=== PATIENT | female | born 1975 | race Caucasian/White ===

== ENCOUNTER 2016-10-29 21:43 | Inpatient (IN) | payer MEDICARE, MEDICAID ==
[~2016-10-29] VITALS: Ht 177.8 cm; Wt 75.3 kg
[~2016-10-29 21:43] MED LIST: DIVA500T52 PO; LEVO50 PO; SULF1TAB42 PO
[2016-10-29] MEDS ORDERED: [UNRECOGNIZED DRUG - CODE] PO (22:02)
[2016-10-29] MEDS ORDERED: TOPI50TA90 PO (22:02)
[2016-10-29 22:16] LABS: EOSINOPHILS % (AUTO) 0.03 % (1.0-6.0)
[2016-10-29 22:25] LABS: BASOPHILS # (AUTO) 0.14 K/uL (0.00-0.20); BASOPHILS % (AUTO) 1.2 % (0.0-2.0); HEMATOCRIT 41.6 % (36-46); HEMOGLOBIN 13.7 g/dL (12.0-16.0); LYMPHOCYTES # (AUTO) 1.1 K/uL (1.0-4.8); LYMPHOCYTES % (AUTO) 9.3 % (22.0-44.0); MEAN CORPUSCULAR HEMOGLOBIN 27.4 pg (26.0-34.0); MEAN CORPUSCULAR VOLUME 83 fL (80-100); MONOCYTES # (AUTO) 0.3 K/uL (0.1-1.0); MONOCYTES % (AUTO) 2.5 % (2.0-9.0); PLATELET COUNT (AUTO) 304 K/uL (150-450); RED BLOOD CELL COUNT(AUTO) 5.01 MIL/uL (4.00-5.20); WHITE BLOOD COUNT (AUTO) 11.5 K/uL (4.5-11.0)
[2016-10-29 22:27] LABS: ANION GAP 15 mmol/L (8-16); CALCIUM, TOTAL 7.5 mg/dL (8.8-10.5); CARBON DIOXIDE 23 mmol/L (22-29); CHLORIDE 99 mmol/L (98-107); GLOMERULAR FILTR. RATE CALC > 60 mL/min (>60); POTASSIUM 3.4 mmol/L (3.5-5.1); SODIUM SERUM 137 mmol/L (136-145); UREA NITROGEN, BLOOD 9 mg/dL (7-18)
[2016-10-29 22:29] LABS: NEUTROPHILS % (AUTO) 86.9 % (40.0-70.0)
[2016-10-29 22:31] LABS: ALANINE AMINOTRANSFERASE 146 U/L (12-78); ALBUMIN 2.9 g/dL (3.4-5.0); ASPARTATE AMINOTRANSFERASE 146 U/L (15-37); BILIRUBIN,TOTAL 0.4 mg/dL (0.1-1.0); TOTAL PROTEIN, SERUM 6.3 g/dL (6.4-8.2)
[2016-10-29 22:49] LABS: RBC MORPHOLOGY COMMENT ABNORMAL RBC MORPH
[2016-10-30] MEDS ORDERED: ONDANSETRON HCL 4 MG TABLET PO ONE
[2016-10-30] MEDS ORDERED: LORazepam 2 MG TABLET PO ONE
[2016-10-30] MEDS ORDERED: POTASSIUM CHLORIDE 10% 40 MEQ/30 ML LIQUID UDCUP PO ONE (00:30)
[2016-10-30 02:50] VITALS: BP 132/89
[2016-10-30] MEDS ORDERED: INFLUENZA VIRUS VACCINE QVS 2016-17 (3YR+)/PF 60 MCG/0.5 ML SYRINGE IM ONE (04:00)
[2016-10-30] MEDS: LORazepam 2 MG TABLET PO PRN ×4 (04:32→17:46)
[2016-10-30] MEDS: HALOPERIDOL 5 MG TABLET PO PRN (08:10)
[2016-10-30 08:32] LABS: THYROID STIMULATING HORMONE 2.79 uIU/mL (0.36-3.74)
[2016-10-30] MEDS ORDERED: LOPERAMIDE HCL 2 MG CAPSULE PO ONE (09:30)
[2016-10-30] MEDS ORDERED: LOPERAMIDE HCL 2 MG CAPSULE PO PRN (09:30)
[2016-10-30 14:10] VITALS: BP 106/70
[2016-10-30] MEDS ORDERED: ONDANSETRON HCL 4 MG TABLET PO PRN (14:15)
[2016-10-30] MEDS: NITROFURANTOIN/NITROFURAN MAC 100 MG CAPSULE [MACROBID] PO SCH (16:19)
[2016-10-30 16:28] VITALS: BP 116/76
[2016-10-30 17:44] VITALS: BP 114/78
[2016-10-30] MEDS: ZOLPIDEM TARTRATE 10 MG TABLET PO PRN (21:04)
[2016-10-31] VITALS (7 sets, daily range): BP systolic 98–131; BP diastolic 59–91
[2016-10-31] MEDS: LORazepam 2 MG TABLET PO PRN ×3 (04:25→16:53)
[2016-10-31] MEDS: LEVOTHYROXINE SODIUM 25 MCG TABLET PO SCH (06:34)
[2016-10-31] MEDS: NITROFURANTOIN/NITROFURAN MAC 100 MG CAPSULE [MACROBID] PO SCH ×2 (08:51→16:21)
[2016-10-31] MEDS: ChlordiazePOXIDE HCL 25 MG CAPSULE PO SCH ×2 (18:59→22:05)
[2016-10-31] MEDS: TraZODone HCL 100 MG TABLET PO SCH (18:59)
[2016-11-01] VITALS (8 sets, daily range): BP systolic 103–140; BP diastolic 60–89
[2016-11-01] MEDS: ZOLPIDEM TARTRATE 10 MG TABLET PO PRN ×2 (00:26→21:12)
[2016-11-01] MEDS: ChlordiazePOXIDE HCL 25 MG CAPSULE PO PRN (05:37)
[2016-11-01] MEDS: LEVOTHYROXINE SODIUM 25 MCG TABLET PO SCH (07:07)
[2016-11-01] MEDS: NITROFURANTOIN/NITROFURAN MAC 100 MG CAPSULE [MACROBID] PO SCH ×2 (09:07→16:01)
[2016-11-01] MEDS: ChlordiazePOXIDE HCL 25 MG CAPSULE PO SCH ×4 (09:07→20:18)
[2016-11-01] MEDS: TraZODone HCL 100 MG TABLET PO SCH ×3 (09:07→16:01)
[2016-11-01] MEDS: HALOPERIDOL 5 MG TABLET PO PRN (23:17)
[2016-11-02 00:30] VITALS: BP 112/65
[2016-11-02] MEDS: ChlordiazePOXIDE HCL 25 MG CAPSULE PO PRN (04:12)
[2016-11-02] MEDS ORDERED: ChlordiazePOXIDE HCL 10 MG CAPSULE PO PRN (07:00)
[2016-11-02] MEDS: LEVOTHYROXINE SODIUM 25 MCG TABLET PO SCH (07:19)
[2016-11-02] MEDS: HALOPERIDOL 5 MG TABLET PO PRN ×3 (07:42→16:27)
[2016-11-02] MEDS: ChlordiazePOXIDE HCL 10 MG CAPSULE PO SCH ×4 (08:04→20:25)
[2016-11-02] MEDS: TraZODone HCL 100 MG TABLET PO SCH ×3 (08:04→16:03)
[2016-11-02] MEDS: NITROFURANTOIN/NITROFURAN MAC 100 MG CAPSULE [MACROBID] PO SCH ×2 (08:04→17:14)
[2016-11-02 16:20] VITALS: BP 121/74
[2016-11-02 16:22] VITALS: BP 121/74
[2016-11-02 18:15] VITALS: BP 122/81
[2016-11-02] MEDS ORDERED: IBUPROFEN 600 MG TABLET PO PRN (18:15)
[2016-11-02] MEDS: ZOLPIDEM TARTRATE 10 MG TABLET PO PRN (20:37)
[2016-11-03] MEDS: HALOPERIDOL 5 MG TABLET PO PRN (00:31)
[2016-11-03 00:33] VITALS: BP 101/83
[2016-11-03] MEDS ORDERED: TRAZ-147 PO (02:29)
[2016-11-03] MEDS ORDERED: MACR100 PO (02:31)
[2016-11-03] MEDS: LEVOTHYROXINE SODIUM 25 MCG TABLET PO SCH (06:41)
[2016-11-03] MEDS ORDERED: ChlordiazePOXIDE HCL 10 MG CAPSULE PO PRN (07:00)
[2016-11-03] MEDS: NITROFURANTOIN/NITROFURAN MAC 100 MG CAPSULE [MACROBID] PO SCH (07:58)
[2016-11-03 08:15] VITALS: BP 103/74
[2016-11-03] MEDS: TraZODone HCL 100 MG TABLET PO SCH (08:46)
== END 2016-11-03 09:00 | disposition home or self-care (01) | DRG 885 ==
LOC: EMS 21:45 → 3EX 10-30 00:01
PROVIDERS: ADMIT Psychiatry & Neurology Psychiatry; ATTEND Psychiatry & Neurology Psychiatry
PROC: 3E0234Z Introduction of Serum, Toxoid and Vaccine into Muscle, Percutaneous Approach (ICD-10-PCS; principal; 2016-10-30)
DX: F25.0 Schizoaffective disorder, bipolar type (principal); R45.851 Suicidal ideations; E46 Unspecified protein-calorie malnutrition; N39.0 Urinary tract infection, site not specified; F10.121 Alcohol abuse with intoxication delirium; K70.30 Alcoholic cirrhosis of liver without ascites; E03.9 Hypothyroidism, unspecified; K29.70 Gastritis, unspecified, without bleeding; F22 Delusional disorders; F15.129 Other stimulant abuse with intoxication, unspecified; Z98.84 Bariatric surgery status; Z88.6 Allergy status to analgesic agent; Z91.410 Personal history of adult physical and sexual abuse; Z68.23 Body mass index [BMI] 23.0-23.9, adult; Z23 Encounter for immunization
CPT/HCPCS: 84132; 84439; 84443; 99285; G0480; Q0162

== ENCOUNTER 2019-09-08 11:03 | Inpatient (IN) | payer MEDICARE, MEDICAID ==
[2019-09-08] VITALS (8 sets, daily range): BP systolic 104–134; BP diastolic 64–89
[~2019-09-08] VITALS: Ht 177.8 cm; Wt 86.3 kg
[~2019-09-08 11:03] MED LIST changes: -DIVA500T52 PO; +MACR100 PO; -SULF1TAB42 PO; +TRAZ-257 PO
[2019-09-08] MEDS ORDERED: TOPI25 PO (11:15)
[2019-09-08] MEDS ORDERED: CHLO10 PO (11:15)
[2019-09-08] MEDS ORDERED: BUPR75 PO (11:15)
[2019-09-08] MEDS ORDERED: GABA-529 PO (11:15)
[2019-09-08 12:07] LABS: BASOPHILS % (AUTO) 0.7 % (0.0-2.0); EOSINOPHILS % (AUTO) 0.5 % (1.0-6.0); HEMATOCRIT 39.9 % (36-46); HEMOGLOBIN 13.3 g/dL (12.0-16.0); LYMPHOCYTES # (AUTO) 1.2 K/uL (1.0-4.8); LYMPHOCYTES % (AUTO) 20.7 % (22.0-44.0); MEAN CORPUSCULAR HEMOGLOBIN 32.3 pg (26.0-34.0); MEAN CORPUSCULAR HGB CONC 33.4 G/dL (31.0-37.0); MEAN CORPUSCULAR VOLUME 97 fL (80-100); MONOCYTES # (AUTO) 0.6 K/uL (0.1-1.0); NEUTROPHILS # (AUTO) 4.1 K/uL (1.8-7.7); NEUTROPHILS % (AUTO) 68.1 % (40.0-70.0); PLATELET COUNT (AUTO) 276 K/uL (150-450); RED BLOOD CELL COUNT(AUTO) 4.12 MIL/uL (4.00-5.20); RED CELL DISTRIBUTION WIDTH 13.6 % (11.5-14.5)
[2019-09-08 12:15] LABS: ANION GAP 12 mmol/L (8-16); CALCIUM, TOTAL 8.3 mg/dL (8.8-10.5); CARBON DIOXIDE 25 mmol/L (22-29); CHLORIDE 96 mmol/L (98-107); CREATININE 0.43 mg/dL (0.60-1.30); GLOMERULAR FILTR. RATE CALC > 60 mL/min (>60); GLUCOSE,RANDOM 102 mg/dL (70-110); POTASSIUM 3.4 mmol/L (3.5-5.1); SODIUM SERUM 133 mmol/L (136-145); UREA NITROGEN, BLOOD 7 mg/dL (7-18)
[2019-09-08 12:21] LABS: ALANINE AMINOTRANSFERASE 70 U/L (12-78); ALBUMIN 3.1 g/dL (3.4-5.0); ALKALINE PHOSPHATASE 175 U/L (46-116); ASPARTATE AMINOTRANSFERASE 43 U/L (15-37); BILIRUBIN,TOTAL 0.3 mg/dL (0.1-1.0); TOTAL PROTEIN, SERUM 6.1 g/dL (6.4-8.2)
[2019-09-08] MEDS ORDERED: OLANZapine 5 MG RAPDIS TABLET PO PRN (13:15)
[2019-09-08] MEDS ORDERED: TUBERCULIN, PURIFIED PROTEIN DERIVATIVE 5 TU/0.1 ML SYRINGE ID ONE (13:15)
[2019-09-08] MEDS ORDERED: GuaiFENesin/D-METHORPHAN [SUGAR-FREE] 200-20MG/10 ML SYRUP UDCUP PO PRN (13:15)
[2019-09-08] MEDS ORDERED: CYANOCOBALAMIN 1,000 MCG/ML VIAL IM ONE (13:15)
[2019-09-08] MEDS ORDERED: MAGNESIUM HYDROXIDE SUSPENSION 30 ML UDCUP PO PRN (13:15)
[2019-09-08] MEDS ORDERED: LOPERAMIDE HCL 2 MG CAPSULE PO PRN (13:15)
[2019-09-08] MEDS ORDERED: ACETAMINOPHEN 325 MG TABLET PO PRN (13:15)
[2019-09-08] MEDS ORDERED: HydrOXYzine PAMOATE 50 MG CAPSULE PO PRN (13:15)
[2019-09-08 15:03] LABS: APPEARANCE,URINE CLEAR (CLEAR); BILIRUBIN,URINE NEGATIVE (NEGATIVE); GLUCOSE, URINE (UA) NEGATIVE (NEGATIVE); KETONES,URINE NEGATIVE (NEGATIVE); LEUKOCYTE ESTERASE ,URINE NEGATIVE (NEGATIVE); NITRATE,URINE NEGATIVE (NEGATIVE); OCCULT BLOOD,URINE NEGATIVE (NEGATIVE); PROTEIN,URINE NEGATIVE (NEGATIVE); UROBILINOGEN,URINE 0.2 mg/dL (<=1.0)
[2019-09-08 15:13] LABS: AMPHET/METH SCREEN,URINE NEGATIVE (NEGATIVE); BARBITURATE SCREEN, URINE POSITIVE (NEGATIVE); BENZODIAZEPINES SCREEN,URINE POSITIVE (NEGATIVE); CANNABINOID SCREEN,URINE NEGATIVE (NEGATIVE); COCAINE SCREEN,URINE NEGATIVE (NEGATIVE); METHADONE SCREEN, URINE NEGATIVE (NEGATIVE); OPIATE SCREEN,URINE NEGATIVE (NEGATIVE)
[2019-09-08 15:14] LABS: PHENCYCLIDINE SCREEN,URINE NEGATIVE (NEGATIVE)
[2019-09-08] MEDS: PROMETHAZINE HCL 25 MG TABLET PO PRN (19:47)
[2019-09-08] MEDS: LORazepam 2 MG TABLET PO PRN (19:47)
[2019-09-08] MEDS: GABAPENTIN 100 MG CAPSULE PO SCH (20:49)
[2019-09-08] MEDS: THIAMINE HCL 100 MG TABLET PO SCH (20:49)
[2019-09-08] MEDS ORDERED: OLANZapine 10 MG RAPDIS TABLET PO SCH (21:00)
[2019-09-08] MEDS ORDERED: TOPIRAMATE 25 MG TABLET PO SCH (21:00)
[2019-09-09] VITALS (9 sets, daily range): BP systolic 94–126; BP diastolic 64–83
[2019-09-09] MEDS: LORazepam 2 MG TABLET PO PRN ×3 (00:15→13:56)
[2019-09-09] MEDS: NALTREXONE HCL 50 MG TABLET PO SCH (08:19)
[2019-09-09] MEDS: THIAMINE HCL 100 MG TABLET PO SCH ×2 (08:20→16:59)
[2019-09-09] MEDS: LORazepam 2 MG TABLET PO SCH ×5 (08:20→20:43)
[2019-09-09] MEDS: FOLIC ACID 1 MG TABLET PO SCH (08:20)
[2019-09-09] MEDS: GABAPENTIN 100 MG CAPSULE PO SCH ×4 (08:20→20:21)
[2019-09-09] MEDS: MULTIVITAMINS WITH MINERALS, THERAPEUTIC TABLET PO SCH (08:20)
[2019-09-09] MEDS: TOPIRAMATE 100 MG TABLET PO SCH (20:21)
[2019-09-10 01:45] VITALS: BP 116/79
[2019-09-10] MEDS: LORazepam 2 MG TABLET PO PRN ×3 (01:50→06:14)
[2019-09-10] MEDS: MAG HYDROX/AL HYDROX/SIMETH ES 30 ML SUSPENSION UDCUP PO PRN (04:34)
[2019-09-10 07:47] LABS: HEMOGLOBIN A1C 5.4 % (4.5-6.2)
[2019-09-10 08:10] LABS: FREE T4 (FREE THYROXINE) 0.66 ng/dL (0.76-1.46); MAGNESIUM 1.7 mg/dL (1.80-2.40); THYROID STIMULATING HORMONE 3.97 uIU/mL (0.36-3.74)
[2019-09-10 08:30] VITALS: BP 116/79
[2019-09-10] MEDS: MULTIVITAMINS WITH MINERALS, THERAPEUTIC TABLET PO SCH (08:45)
[2019-09-10] MEDS: GABAPENTIN 100 MG CAPSULE PO SCH ×4 (08:46→20:14)
[2019-09-10] MEDS: NALTREXONE HCL 50 MG TABLET PO SCH (08:46)
[2019-09-10] MEDS: FOLIC ACID 1 MG TABLET PO SCH (08:46)
[2019-09-10] MEDS: THIAMINE HCL 100 MG TABLET PO SCH ×2 (08:46→16:14)
[2019-09-10] MEDS: LORazepam 2 MG TABLET PO SCH ×2 (08:48→13:58)
[2019-09-10] MEDS ORDERED: ARIPiprazole 15 MG TABLET PO SCH (09:00)
[2019-09-10] MEDS ORDERED: ATOMOXETINE HCL 10 MG CAPSULE PO SCH (09:00)
[2019-09-10] MEDS ORDERED: MAGNESIUM OXIDE 400 MG TABLET PO ONE (11:30)
[2019-09-10] MEDS ORDERED: POTASSIUM CHLORIDE 20 MEQ ER TABLET PO ONE (11:30)
[2019-09-10] MEDS: LEVOTHYROXINE SODIUM 50 MCG TABLET PO SCH (12:31)
[2019-09-10 13:55] VITALS: BP 116/83
[2019-09-10 14:45] VITALS: BP 128/66
[2019-09-10 16:00] VITALS: BP 120/73
[2019-09-10] MEDS: DIAZEPAM 10 MG TABLET PO PRN ×2 (16:12→20:14)
[2019-09-10] MEDS: PROMETHAZINE HCL 25 MG TABLET PO PRN (18:27)
[2019-09-10] MEDS: TOPIRAMATE 100 MG TABLET PO SCH (20:14)
[2019-09-11] VITALS (11 sets, daily range): BP systolic 98–136; BP diastolic 67–84
[2019-09-11] MEDS: DIAZEPAM 10 MG TABLET PO PRN (01:28)
[2019-09-11] MEDS: LEVOTHYROXINE SODIUM 50 MCG TABLET PO SCH (06:53)
[2019-09-11] MEDS ORDERED: DIAZEPAM 10 MG TABLET PO PRN (07:00)
[2019-09-11] MEDS ORDERED: LORazepam 1 MG TABLET PO PRN (07:00)
[2019-09-11] MEDS: DIAZEPAM 10 MG TABLET PO SCH ×3 (08:01→16:20)
[2019-09-11] MEDS: MULTIVITAMINS WITH MINERALS, THERAPEUTIC TABLET PO SCH (08:02)
[2019-09-11] MEDS: GABAPENTIN 100 MG CAPSULE PO SCH ×3 (08:02→16:21)
[2019-09-11] MEDS: THIAMINE HCL 100 MG TABLET PO SCH ×2 (08:02→16:21)
[2019-09-11] MEDS: FOLIC ACID 1 MG TABLET PO SCH (08:02)
[2019-09-11] MEDS: NALTREXONE HCL 50 MG TABLET PO SCH (08:02)
[2019-09-11] MEDS ORDERED: LORazepam 1 MG TABLET PO SCH (09:00)
[2019-09-11] MEDS ORDERED: LOPERAMIDE HCL 2 MG CAPSULE PO PRN (13:15)
[2019-09-11] MEDS ORDERED: QUEtiapine FUMARATE 100 MG TABLET PO PRN (18:15)
[2019-09-11] MEDS: LORazepam 2 MG TABLET PO PRN ×2 (19:31→22:12)
[2019-09-11] MEDS: GABAPENTIN 300 MG CAPSULE PO SCH (20:17)
[2019-09-11] MEDS: TOPIRAMATE 100 MG TABLET PO SCH (20:17)
[2019-09-11] MEDS ORDERED: QUEtiapine FUMARATE 200 MG TABLET PO SCH (21:00)
[2019-09-12] VITALS (11 sets, daily range): BP systolic 95–127; BP diastolic 68–88
[2019-09-12] MEDS: LORazepam 2 MG TABLET PO PRN ×5 (02:05→17:13)
[2019-09-12] MEDS: LEVOTHYROXINE SODIUM 50 MCG TABLET PO SCH (06:37)
[2019-09-12] MEDS ORDERED: LORazepam 1 MG TABLET PO PRN (07:00)
[2019-09-12 07:50] LABS: ANION GAP 8 mmol/L (8-16); CALCIUM, TOTAL 8.7 mg/dL (8.8-10.5); CARBON DIOXIDE 29 mmol/L (22-29); CHLORIDE 99 mmol/L (98-107); CREATININE 0.43 mg/dL (0.60-1.30); GLOMERULAR FILTR. RATE CALC > 60 mL/min (>60); GLUCOSE,RANDOM 96 mg/dL (70-110); POTASSIUM 4.3 mmol/L (3.5-5.1); SODIUM SERUM 136 mmol/L (136-145); UREA NITROGEN, BLOOD 15 mg/dL (7-18)
[2019-09-12] MEDS: MULTIVITAMINS WITH MINERALS, THERAPEUTIC TABLET PO SCH (08:43)
[2019-09-12] MEDS: THIAMINE HCL 100 MG TABLET PO SCH ×2 (08:43→16:11)
[2019-09-12] MEDS: GABAPENTIN 300 MG CAPSULE PO SCH ×3 (08:43→16:11)
[2019-09-12] MEDS: FOLIC ACID 1 MG TABLET PO SCH (08:43)
[2019-09-12] MEDS: NALTREXONE HCL 50 MG TABLET PO SCH (08:44)
[2019-09-12] MEDS ORDERED: BISACODYL 5 MG EC TABLET PO PRN (08:45)
[2019-09-12] MEDS: IBUPROFEN 600 MG TABLET PO PRN (19:50)
[2019-09-12] MEDS: QUEtiapine FUMARATE 200 MG TABLET PO SCH (20:52)
[2019-09-12] MEDS: GABAPENTIN 400 MG CAPSULE PO SCH (20:52)
[2019-09-12] MEDS: TOPIRAMATE 100 MG TABLET PO SCH (21:26)
[2019-09-13 04:04] VITALS: BP 91/68
[2019-09-13] MEDS: LEVOTHYROXINE SODIUM 50 MCG TABLET PO SCH (06:50)
[2019-09-13] MEDS ORDERED: DIAZEPAM 5 MG TABLET PO PRN (07:00)
[2019-09-13 08:05] LABS: ANION GAP 10 mmol/L (8-16); CALCIUM, TOTAL 8.3 mg/dL (8.8-10.5); CARBON DIOXIDE 25 mmol/L (22-29); CHLORIDE 100 mmol/L (98-107); CREATININE 0.49 mg/dL (0.60-1.30); GLOMERULAR FILTR. RATE CALC > 60 mL/min (>60); GLUCOSE,RANDOM 136 mg/dL (70-110); POTASSIUM 3.5 mmol/L (3.5-5.1); SODIUM SERUM 135 mmol/L (136-145); UREA NITROGEN, BLOOD 14 mg/dL (7-18)
[2019-09-13] MEDS: GABAPENTIN 400 MG CAPSULE PO SCH ×4 (08:55→20:21)
[2019-09-13] MEDS: MULTIVITAMINS WITH MINERALS, THERAPEUTIC TABLET PO SCH (08:55)
[2019-09-13] MEDS: NALTREXONE HCL 50 MG TABLET PO SCH (08:56)
[2019-09-13] MEDS: FOLIC ACID 1 MG TABLET PO SCH (08:56)
[2019-09-13] MEDS: THIAMINE HCL 100 MG TABLET PO SCH ×2 (08:56→16:25)
[2019-09-13 09:00] VITALS: BP 114/75
[2019-09-13] MEDS ORDERED: DIAZEPAM 5 MG TABLET PO SCH (09:00)
[2019-09-13 12:59] VITALS: BP 108/64
[2019-09-13 17:07] VITALS: BP 116/80
[2019-09-13] MEDS: QUEtiapine FUMARATE 200 MG TABLET PO SCH (20:21)
[2019-09-13] MEDS: ZOLPIDEM TARTRATE 10 MG TABLET PO PRN (20:21)
[2019-09-13] MEDS: TOPIRAMATE 100 MG TABLET PO SCH (20:21)
[2019-09-14 01:15] VITALS: BP 93/54
[2019-09-14] MEDS: LEVOTHYROXINE SODIUM 50 MCG TABLET PO SCH (06:40)
[2019-09-14] MEDS ORDERED: DIAZEPAM 5 MG TABLET PO PRN (07:00)
[2019-09-14] MEDS ORDERED: LORazepam 1 MG TABLET PO PRN (07:00)
[2019-09-14] MEDS: LORazepam 1 MG TABLET PO SCH ×4 (08:35→20:06)
[2019-09-14] MEDS: FOLIC ACID 1 MG TABLET PO SCH (08:35)
[2019-09-14] MEDS: GABAPENTIN 400 MG CAPSULE PO SCH ×4 (08:35→20:06)
[2019-09-14] MEDS: NALTREXONE HCL 50 MG TABLET PO SCH (08:35)
[2019-09-14] MEDS: THIAMINE HCL 100 MG TABLET PO SCH ×2 (08:36→16:22)
[2019-09-14] MEDS: MULTIVITAMINS WITH MINERALS, THERAPEUTIC TABLET PO SCH (08:37)
[2019-09-14 09:00] VITALS: BP 96/68
[2019-09-14 12:00] VITALS: BP 98/71
[2019-09-14 12:10] LABS: GLUCOMETER DEV NAME(LOC) 3EX.; GLUCOSE,POINT OF CARE 123 MG/DL (70-110)
[2019-09-14 16:00] VITALS: BP 103/59
[2019-09-14 16:48] VITALS: BP 103/59
[2019-09-14] MEDS: TOPIRAMATE 100 MG TABLET PO SCH (20:06)
[2019-09-14] MEDS: QUEtiapine FUMARATE 200 MG TABLET PO SCH (20:06)
[2019-09-14] MEDS: ZOLPIDEM TARTRATE 10 MG TABLET PO PRN (21:11)
[2019-09-15] VITALS: BP 98/52
[2019-09-15 02:15] VITALS: BP 105/65
[2019-09-15] MEDS: LEVOTHYROXINE SODIUM 50 MCG TABLET PO SCH (06:32)
[2019-09-15] MEDS: GABAPENTIN 400 MG CAPSULE PO SCH ×4 (08:23→20:41)
[2019-09-15] MEDS: NALTREXONE HCL 50 MG TABLET PO SCH (08:23)
[2019-09-15] MEDS: THIAMINE HCL 100 MG TABLET PO SCH ×2 (08:23→16:10)
[2019-09-15] MEDS: MULTIVITAMINS WITH MINERALS, THERAPEUTIC TABLET PO SCH (08:23)
[2019-09-15] MEDS: FOLIC ACID 1 MG TABLET PO SCH (08:23)
[2019-09-15] MEDS: LORazepam 1 MG TABLET PO PRN ×3 (09:30→18:31)
[2019-09-15 09:48] VITALS: BP 118/83
[2019-09-15 09:49] VITALS: BP 118/83
[2019-09-15 16:00] VITALS: BP 102/78
[2019-09-15 16:56] VITALS: BP 96/64
[2019-09-15] MEDS: IBUPROFEN 600 MG TABLET PO PRN (16:56)
[2019-09-15] MEDS: TOPIRAMATE 100 MG TABLET PO SCH (20:41)
[2019-09-15] MEDS: ZOLPIDEM TARTRATE 10 MG TABLET PO PRN (20:44)
[2019-09-15] MEDS ORDERED: QUEtiapine FUMARATE 300 MG TABLET PO SCH (21:00)
[2019-09-16 02:19] VITALS: BP 100/73
[2019-09-16] MEDS: LEVOTHYROXINE SODIUM 50 MCG TABLET PO SCH (06:53)
[2019-09-16 08:00] VITALS: BP 103/67
[2019-09-16] MEDS: GABAPENTIN 400 MG CAPSULE PO SCH ×3 (08:05→16:42)
[2019-09-16] MEDS: MULTIVITAMINS WITH MINERALS, THERAPEUTIC TABLET PO SCH (08:05)
[2019-09-16] MEDS: NALTREXONE HCL 50 MG TABLET PO SCH (08:06)
[2019-09-16] MEDS: THIAMINE HCL 100 MG TABLET PO SCH ×2 (08:06→16:42)
[2019-09-16] MEDS: FOLIC ACID 1 MG TABLET PO SCH (08:06)
[2019-09-16] MEDS: TOPIRAMATE 100 MG TABLET PO SCH (20:23)
[2019-09-16] MEDS: GABAPENTIN 300 MG CAPSULE PO SCH (20:25)
[2019-09-16] MEDS: ZOLPIDEM TARTRATE 10 MG TABLET PO PRN (20:25)
[2019-09-16 20:31] VITALS: BP 101/67
[2019-09-16] MEDS ORDERED: QUEtiapine FUMARATE 200 MG TABLET PO SCH (21:00)
[2019-09-17 02:37] VITALS: BP 104/68
[2019-09-17] MEDS: LEVOTHYROXINE SODIUM 50 MCG TABLET PO SCH (06:44)
[2019-09-17 08:37] VITALS: BP 119/90
[2019-09-17] MEDS: GABAPENTIN 300 MG CAPSULE PO SCH (09:21)
[2019-09-17] MEDS: MULTIVITAMINS WITH MINERALS, THERAPEUTIC TABLET PO SCH (09:21)
[2019-09-17] MEDS: THIAMINE HCL 100 MG TABLET PO SCH ×2 (09:21→16:35)
[2019-09-17] MEDS: NALTREXONE HCL 50 MG TABLET PO SCH (09:21)
[2019-09-17] MEDS: FOLIC ACID 1 MG TABLET PO SCH (09:22)
[2019-09-17] MEDS: GABAPENTIN 400 MG CAPSULE PO SCH ×3 (13:53→20:18)
[2019-09-17] MEDS: QUEtiapine FUMARATE 25 MG TABLET PO SCH ×2 (13:54→16:35)
[2019-09-17 16:46] VITALS: BP 112/77
[2019-09-17] MEDS: TOPIRAMATE 100 MG TABLET PO SCH (20:19)
[2019-09-17] MEDS ORDERED: QUEtiapine FUMARATE 300 MG TABLET PO SCH (21:00)
[2019-09-17] MEDS ORDERED: QUEtiapine FUMARATE 200 MG TABLET PO SCH (21:00)
[2019-09-18 01:56] VITALS: BP 111/68
[2019-09-18] MEDS: LEVOTHYROXINE SODIUM 50 MCG TABLET PO SCH (06:35)
[2019-09-18] MEDS: FOLIC ACID 1 MG TABLET PO SCH (08:57)
[2019-09-18] MEDS: NALTREXONE HCL 50 MG TABLET PO SCH (08:57)
[2019-09-18] MEDS: THIAMINE HCL 100 MG TABLET PO SCH (08:58)
[2019-09-18] MEDS: GABAPENTIN 400 MG CAPSULE PO SCH ×4 (08:59→20:55)
[2019-09-18] MEDS: QUEtiapine FUMARATE 25 MG TABLET PO SCH ×4 (08:59→20:53)
[2019-09-18] MEDS: MULTIVITAMINS WITH MINERALS, THERAPEUTIC TABLET PO SCH (08:59)
[2019-09-18 09:59] VITALS: BP 98/60
[2019-09-18 16:46] VITALS: BP 99/68
[2019-09-18] MEDS: ZOLPIDEM TARTRATE 10 MG TABLET PO PRN (20:53)
[2019-09-18] MEDS: TOPIRAMATE 100 MG TABLET PO SCH (20:54)
[2019-09-18] MEDS: QUEtiapine FUMARATE 300 MG TABLET PO SCH (20:55)
[2019-09-19 00:45] VITALS: BP 103/81
[2019-09-19] MEDS: LEVOTHYROXINE SODIUM 50 MCG TABLET PO SCH (06:58)
[2019-09-19] MEDS: NALTREXONE HCL 50 MG TABLET PO SCH (08:17)
[2019-09-19] MEDS: QUEtiapine FUMARATE 25 MG TABLET PO SCH ×4 (08:18→20:18)
[2019-09-19] MEDS: MULTIVITAMINS WITH MINERALS, THERAPEUTIC TABLET PO SCH (08:18)
[2019-09-19] MEDS: GABAPENTIN 400 MG CAPSULE PO SCH ×4 (08:18→20:18)
[2019-09-19 08:30] VITALS: BP 91/62
[2019-09-19 16:30] VITALS: BP 97/69
[2019-09-19] MEDS: QUEtiapine FUMARATE 300 MG TABLET PO SCH (20:18)
[2019-09-19] MEDS: TOPIRAMATE 100 MG TABLET PO SCH (20:18)
[2019-09-19] MEDS: ZOLPIDEM TARTRATE 10 MG TABLET PO PRN (20:21)
[2019-09-20 05:57] VITALS: BP 101/64
[2019-09-20] MEDS: LEVOTHYROXINE SODIUM 50 MCG TABLET PO SCH (06:26)
[2019-09-20] MEDS: MULTIVITAMINS WITH MINERALS, THERAPEUTIC TABLET PO SCH (08:37)
[2019-09-20] MEDS: NALTREXONE HCL 50 MG TABLET PO SCH (08:37)
[2019-09-20] MEDS: QUEtiapine FUMARATE 25 MG TABLET PO SCH ×3 (08:37→17:03)
[2019-09-20] MEDS: GABAPENTIN 400 MG CAPSULE PO SCH ×4 (08:37→21:42)
[2019-09-20 09:00] VITALS: BP 116/69
[2019-09-20] MEDS: IBUPROFEN 600 MG TABLET PO PRN ×2 (09:55→18:27)
[2019-09-20 16:29] VITALS: BP 102/60
[2019-09-20] MEDS: ChlorproMAZINE HCL 100 MG TABLET PO SCH (21:35)
[2019-09-20] MEDS: TOPIRAMATE 100 MG TABLET PO SCH (21:42)
[2019-09-21] MEDS: LEVOTHYROXINE SODIUM 50 MCG TABLET PO SCH (07:11)
[2019-09-21] MEDS: GABAPENTIN 400 MG CAPSULE PO SCH ×4 (08:02→20:19)
[2019-09-21] MEDS: QUEtiapine FUMARATE 25 MG TABLET PO SCH ×3 (08:03→16:17)
[2019-09-21] MEDS: NALTREXONE HCL 50 MG TABLET PO SCH (08:03)
[2019-09-21] MEDS: MULTIVITAMINS WITH MINERALS, THERAPEUTIC TABLET PO SCH (08:03)
[2019-09-21 11:40] VITALS: BP 98/68
[2019-09-21 16:53] VITALS: BP 95/65
[2019-09-21] MEDS: ChlorproMAZINE HCL 100 MG TABLET PO SCH (20:19)
[2019-09-21] MEDS: TOPIRAMATE 100 MG TABLET PO SCH (20:19)
[2019-09-22 01:50] VITALS: BP 94/69
[2019-09-22] MEDS: LEVOTHYROXINE SODIUM 50 MCG TABLET PO SCH (06:39)
[2019-09-22 08:10] VITALS: BP 111/73
[2019-09-22] MEDS: IBUPROFEN 600 MG TABLET PO PRN ×2 (08:10→19:52)
[2019-09-22] MEDS: MULTIVITAMINS WITH MINERALS, THERAPEUTIC TABLET PO SCH (08:11)
[2019-09-22] MEDS: QUEtiapine FUMARATE 25 MG TABLET PO SCH ×3 (08:11→16:27)
[2019-09-22] MEDS: NALTREXONE HCL 50 MG TABLET PO SCH (08:11)
[2019-09-22] MEDS: GABAPENTIN 400 MG CAPSULE PO SCH ×4 (08:11→19:51)
[2019-09-22 08:25] VITALS: BP 100/72
[2019-09-22 19:52] VITALS: BP 95/68
[2019-09-22] MEDS: TOPIRAMATE 100 MG TABLET PO SCH (19:53)
[2019-09-22] MEDS: ChlorproMAZINE HCL 100 MG TABLET PO SCH (19:53)
[2019-09-23] MEDS: MAG HYDROX/AL HYDROX/SIMETH ES 30 ML SUSPENSION UDCUP PO PRN (02:42)
[2019-09-23] MEDS: LEVOTHYROXINE SODIUM 50 MCG TABLET PO SCH (06:43)
[2019-09-23] MEDS: MULTIVITAMINS WITH MINERALS, THERAPEUTIC TABLET PO SCH (08:33)
[2019-09-23] MEDS: GABAPENTIN 400 MG CAPSULE PO SCH ×4 (08:33→20:10)
[2019-09-23] MEDS: NALTREXONE HCL 50 MG TABLET PO SCH (08:33)
[2019-09-23 09:00] VITALS: BP 113/68
[2019-09-23] MEDS ORDERED: ChlorproMAZINE HCL 25 MG TABLET PO PRN (18:15)
[2019-09-23] MEDS ORDERED: CHLO100T23 PO (18:17)
[2019-09-23] MEDS ORDERED: TOPI100T37 PO (18:17)
[2019-09-23] MEDS ORDERED: GABA-533 PO (18:17)
[2019-09-23] MEDS ORDERED: CHLO10 PO (18:17)
[2019-09-23] MEDS ORDERED: NALT50TA PO (18:17)
[2019-09-23] MEDS: TOPIRAMATE 100 MG TABLET PO SCH (20:10)
[2019-09-23] MEDS: ChlorproMAZINE HCL 100 MG TABLET PO SCH (20:10)
[2019-09-23 21:59] VITALS: BP 98/57
[2019-09-24] MEDS: LEVOTHYROXINE SODIUM 50 MCG TABLET PO SCH (06:30)
[2019-09-24 08:38] VITALS: BP 100/62
[2019-09-24] MEDS ORDERED: ChlorproMAZINE HCL 10 MG TABLET PO SCH (09:00)
[2019-09-24] MEDS: NALTREXONE HCL 50 MG TABLET PO SCH (09:34)
[2019-09-24] MEDS: GABAPENTIN 400 MG CAPSULE PO SCH (09:34)
[2019-09-24] MEDS: MULTIVITAMINS WITH MINERALS, THERAPEUTIC TABLET PO SCH (09:34)
[2019-09-24] MEDS ORDERED: LEVO50 PO (10:00)
== END 2019-09-24 11:15 | disposition home or self-care (01) | DRG 885 ==
LOC: EMS 11:05 → 3EX 18:16
PROVIDERS: ADMIT Psychiatry & Neurology Psychiatry; ATTEND Psychiatry & Neurology Psychiatry
DX: F25.0 Schizoaffective disorder, bipolar type (principal); R45.851 Suicidal ideations; E03.9 Hypothyroidism, unspecified; F10.10 Alcohol abuse, uncomplicated; F17.210 Nicotine dependence, cigarettes, uncomplicated; G43.909 Migraine, unspecified, not intractable, without status migrainosus; I10 Essential (primary) hypertension; Z79.899 Other long term (current) drug therapy; Z91.19 Patient's noncompliance with other medical treatment and regimen; Z98.84 Bariatric surgery status
CPT/HCPCS: 72170; 80074; 83036; 83735; 84439; 84443; 86592; 93005; G0378; G0480; J3420

== ENCOUNTER 2019-10-01 01:46 | Inpatient (IN) | payer MEDICARE, MEDICAID ==
[~2019-10-01] VITALS: Ht 177.8 cm; Wt 81.2 kg
[2019-10-01] VITALS (7 sets, daily range): BP systolic 101–129; BP diastolic 54–72
[~2019-10-01 01:46] MED LIST changes: +CHLO10 PO; +CHLO100T23 PO; +GABA-533 PO; -MACR100 PO; +NALT50TA PO; +TOPI100T37 PO; -TRAZ-257 PO
[2019-10-01] MEDS ORDERED: HALOPERIDOL 5 MG TABLET PO PRN (03:45)
[2019-10-01] MEDS ORDERED: DIAZEPAM 10 MG TABLET PO PRN (03:45)
[2019-10-01] MEDS: LORazepam 1 MG TABLET PO PRN ×2 (08:30→12:25)
[2019-10-01] MEDS: LEVOTHYROXINE SODIUM 50 MCG TABLET PO SCH (10:17)
[2019-10-01] MEDS ORDERED: CloNIDine HCL 0.1 MG TABLET PO PRN (11:15)
[2019-10-01] MEDS ORDERED: MAGNESIUM HYDROXIDE SUSPENSION 30 ML UDCUP PO PRN (11:15)
[2019-10-01] MEDS ORDERED: ALBUTEROL SULFATE HFA 90 MCG/PUFF 8 GM INHALER IH PRN (11:15)
[2019-10-01] MEDS ORDERED: IBUPROFEN 400 MG TABLET PO PRN (11:15)
[2019-10-01] MEDS ORDERED: NICOTINE 14 MG/24 HOUR PATCH TD PRN (11:15)
[2019-10-01] MEDS ORDERED: MAG HYDROX/AL HYDROX/SIMETH ES 30 ML SUSPENSION UDCUP PO PRN (11:15)
[2019-10-01] MEDS ORDERED: PETROLATUM,WHITE 28 GM JELLY TP PRN (11:15)
[2019-10-01] MEDS ORDERED: DOCUSATE SODIUM 100 MG CAPSULE PO PRN (11:15)
[2019-10-01] MEDS ORDERED: ONDANSETRON HCL 4 MG TABLET PO PRN (11:15)
[2019-10-01] MEDS ORDERED: ACETAMINOPHEN 325 MG TABLET PO PRN (11:15)
[2019-10-01] MEDS: LOPERAMIDE HCL 2 MG CAPSULE PO PRN (12:25)
[2019-10-01] MEDS ORDERED: LURASIDONE HCL 40 MG TABLET PO PRN (13:00)
[2019-10-01] MEDS: GABAPENTIN 300 MG CAPSULE PO SCH ×3 (13:18→20:33)
[2019-10-01 16:34] LABS: GLUCOMETER DEV NAME(LOC) BV2X.; GLUCOSE,POINT OF CARE 109 MG/DL (70-110)
[2019-10-01] MEDS: LORazepam 2 MG TABLET PO PRN (16:47)
[2019-10-01] MEDS: TOPIRAMATE 100 MG TABLET PO SCH (20:34)
[2019-10-01] MEDS ORDERED: TOPIRAMATE 100 MG TABLET PO SCH (21:00)
[2019-10-01] MEDS ORDERED: LURASIDONE HCL 40 MG TABLET PO SCH (21:00)
[2019-10-01] MEDS: ZOLPIDEM TARTRATE 10 MG TABLET PO PRN (21:52)
[2019-10-02] VITALS (9 sets, daily range): BP systolic 102–114; BP diastolic 66–80
[2019-10-02] MEDS: LORazepam 2 MG TABLET PO PRN (05:16)
[2019-10-02] MEDS: LEVOTHYROXINE SODIUM 50 MCG TABLET PO SCH (06:25)
[2019-10-02] MEDS ORDERED: DIAZEPAM 10 MG TABLET PO PRN (07:00)
[2019-10-02] MEDS: LORazepam 2 MG TABLET PO SCH ×4 (08:29→20:35)
[2019-10-02] MEDS: NALTREXONE HCL 50 MG TABLET PO SCH (08:30)
[2019-10-02] MEDS: LOPERAMIDE HCL 2 MG CAPSULE PO PRN (08:30)
[2019-10-02] MEDS: TOPIRAMATE 100 MG TABLET PO SCH ×4 (08:31→20:35)
[2019-10-02] MEDS: GABAPENTIN 300 MG CAPSULE PO SCH ×4 (08:31→20:35)
[2019-10-02] MEDS ORDERED: DIAZEPAM 10 MG TABLET PO SCH (09:00)
[2019-10-02] MEDS: GuaiFENesin/D-METHORPHAN [SUGAR-FREE] 200-20MG/10 ML SYRUP UDCUP PO PRN ×2 (09:17→16:28)
[2019-10-02] MEDS ORDERED: LURASIDONE HCL 40 MG TABLET PO SCH (21:00)
[2019-10-02] MEDS: ZOLPIDEM TARTRATE 10 MG TABLET PO PRN (21:39)
[2019-10-03 03:12] VITALS: BP 115/76
[2019-10-03] MEDS: LORazepam 2 MG TABLET PO PRN (03:23)
[2019-10-03] MEDS: LEVOTHYROXINE SODIUM 50 MCG TABLET PO SCH (06:30)
[2019-10-03 08:38] VITALS: BP 117/77
[2019-10-03] MEDS: NALTREXONE HCL 50 MG TABLET PO SCH (08:50)
[2019-10-03] MEDS: LORazepam 2 MG TABLET PO SCH ×4 (08:50→20:33)
[2019-10-03] MEDS: GABAPENTIN 300 MG CAPSULE PO SCH ×2 (08:50→13:12)
[2019-10-03] MEDS: TOPIRAMATE 100 MG TABLET PO SCH ×4 (12:16→20:39)
[2019-10-03 16:30] VITALS: BP 101/73
[2019-10-03] MEDS: GABAPENTIN 400 MG CAPSULE PO SCH ×2 (16:30→20:32)
[2019-10-03 16:39] VITALS: BP 101/73
[2019-10-03] MEDS: LURASIDONE HCL 40 MG TABLET PO SCH (20:33)
[2019-10-03] MEDS: ZOLPIDEM TARTRATE 10 MG TABLET PO PRN (21:38)
[2019-10-04 00:11] VITALS: BP 97/74
[2019-10-04 00:47] VITALS: BP 92/75
[2019-10-04] MEDS: LORazepam 2 MG TABLET PO PRN (05:57)
[2019-10-04] MEDS: LEVOTHYROXINE SODIUM 50 MCG TABLET PO SCH (05:57)
[2019-10-04] MEDS ORDERED: DIAZEPAM 5 MG TABLET PO PRN (07:00)
[2019-10-04] MEDS ORDERED: LORazepam 1 MG TABLET PO PRN (07:00)
[2019-10-04 08:08] VITALS: BP 104/61
[2019-10-04] MEDS: LORazepam 1 MG TABLET PO SCH ×4 (08:43→20:39)
[2019-10-04] MEDS: TOPIRAMATE 100 MG TABLET PO SCH ×4 (08:43→20:39)
[2019-10-04] MEDS: GABAPENTIN 400 MG CAPSULE PO SCH ×4 (08:43→20:39)
[2019-10-04] MEDS: NALTREXONE HCL 50 MG TABLET PO SCH (08:43)
[2019-10-04] MEDS ORDERED: DIAZEPAM 5 MG TABLET PO SCH (09:00)
[2019-10-04 09:34] VITALS: BP 104/61
[2019-10-04 16:05] VITALS: BP 115/84
[2019-10-04] MEDS: LURASIDONE HCL 40 MG TABLET PO SCH (20:39)
[2019-10-04] MEDS: ZOLPIDEM TARTRATE 10 MG TABLET PO PRN (21:11)
[2019-10-04 21:34] VITALS: BP 115/84
[2019-10-05 00:11] VITALS: BP 102/72
[2019-10-05 03:56] VITALS: BP 102/72
[2019-10-05] MEDS: LEVOTHYROXINE SODIUM 50 MCG TABLET PO SCH (06:40)
[2019-10-05] MEDS ORDERED: DIAZEPAM 5 MG TABLET PO PRN (07:00)
[2019-10-05 08:00] VITALS: BP 110/62
[2019-10-05] MEDS: BuPROPion HCL XL 150 MG ER TABLET PO SCH (09:58)
[2019-10-05] MEDS: GABAPENTIN 400 MG CAPSULE PO SCH ×4 (09:58→20:30)
[2019-10-05] MEDS: NALTREXONE HCL 50 MG TABLET PO SCH (09:59)
[2019-10-05] MEDS: TOPIRAMATE 100 MG TABLET PO SCH ×4 (09:59→20:30)
[2019-10-05] MEDS: LORazepam 1 MG TABLET PO PRN ×3 (11:06→20:05)
[2019-10-05 16:05] VITALS: BP 100/74
[2019-10-05] MEDS: LURASIDONE HCL 40 MG TABLET PO SCH (20:30)
[2019-10-05] MEDS: ZOLPIDEM TARTRATE 10 MG TABLET PO PRN (21:02)
[2019-10-06 01:45] VITALS: BP 100/76
[2019-10-06 02:52] VITALS: BP 100/74
[2019-10-06] MEDS: LORazepam 1 MG TABLET PO PRN (02:52)
[2019-10-06] MEDS: LEVOTHYROXINE SODIUM 50 MCG TABLET PO SCH (06:31)
[2019-10-06] MEDS: BuPROPion HCL XL 150 MG ER TABLET PO SCH ×2 (09:00→09:24)
[2019-10-06] MEDS: NALTREXONE HCL 50 MG TABLET PO SCH (09:24)
[2019-10-06] MEDS: GABAPENTIN 400 MG CAPSULE PO SCH ×2 (09:24→14:31)
[2019-10-06] MEDS: LORazepam 2 MG TABLET PO PRN ×3 (09:24→19:12)
[2019-10-06] MEDS: TOPIRAMATE 100 MG TABLET PO SCH ×4 (09:25→21:18)
[2019-10-06 16:21] VITALS: BP 112/76
[2019-10-06] MEDS: GABAPENTIN 300 MG CAPSULE PO SCH ×2 (16:55→21:18)
[2019-10-06] MEDS ORDERED: LURASIDONE HCL 80 MG TABLET PO SCH (21:00)
[2019-10-06] MEDS: ZOLPIDEM TARTRATE 10 MG TABLET PO PRN (21:18)
[2019-10-07 00:32] VITALS: BP 100/57
[2019-10-07 03:48] VITALS: BP 104/78
[2019-10-07] MEDS: LORazepam 2 MG TABLET PO PRN ×2 (03:48→09:04)
[2019-10-07] MEDS: LEVOTHYROXINE SODIUM 50 MCG TABLET PO SCH (06:30)
[2019-10-07] MEDS ORDERED: NALT50TA6 PO (08:09)
[2019-10-07] MEDS ORDERED: LURA80 PO (08:09)
[2019-10-07] MEDS ORDERED: GABA-531 PO (08:09)
[2019-10-07] MEDS ORDERED: TOPI25 PO (08:09)
[2019-10-07] MEDS ORDERED: LEVO50 PO (08:09)
[2019-10-07 08:22] VITALS: BP 105/71
[2019-10-07] MEDS: NALTREXONE HCL 50 MG TABLET PO SCH (09:04)
[2019-10-07] MEDS: GABAPENTIN 300 MG CAPSULE PO SCH (09:04)
[2019-10-07] MEDS: TOPIRAMATE 100 MG TABLET PO SCH (09:04)
== END 2019-10-07 10:35 | disposition home or self-care (01) | DRG 885 ==
LOC: B2X 03:30
PROVIDERS: ADMIT Psychiatry & Neurology Psychiatry; ATTEND Psychiatry & Neurology Psychiatry
DX: F25.0 Schizoaffective disorder, bipolar type (principal); R45.851 Suicidal ideations; F17.210 Nicotine dependence, cigarettes, uncomplicated; E03.9 Hypothyroidism, unspecified; F10.20 Alcohol dependence, uncomplicated; Y90.9 Presence of alcohol in blood, level not specified; F19.10 Other psychoactive substance abuse, uncomplicated; K59.00 Constipation, unspecified; G40.909 Epilepsy, unspecified, not intractable, without status epilepticus; R45.87 Impulsiveness; Z91.19 Patient's noncompliance with other medical treatment and regimen; Z71.41 Alcohol abuse counseling and surveillance of alcoholic; Z98.84 Bariatric surgery status; Z88.5 Allergy status to narcotic agent; Z88.6 Allergy status to analgesic agent
CPT/HCPCS: 87081